=== PATIENT | female | born 1985 | race Caucasian/White ===

== ENCOUNTER 2016-10-19 13:50 | Emergency (ER) | payer MEDICAID ==
[~2016-10-19] VITALS: Wt 71.0 kg
[~2016-10-19 13:50] MED LIST: PREN-46 PO
--- NOTE | 2016-10-19 17:56 | ERD ---
ER Documentation Chief Complaint Date/Time DATE: 10/19/16 TIME: 17:48 Chief Complaint Patient is here for an ultrasound of the pelvis, HPI 30-year-old female with no significant past medical history who is a is here in the ED to receive an ultrasound of the pelvis due to no heart tones noted on previous ultrasounds. Patient reports that her CLOCK MECHANIC is Dr. Cruz Cook and was sent here for further evaluation. Denies any vaginal bleeding, vaginal discharge, dysuria, urgency, frequency, hematuria, vaginal discharge, chest pain, shortness of breath, fever, chills. Dates that her last menses was sometime earlier in July 2016. ROS All systems reviewed and are negative except as per history of present illness. Medications Home Meds Reported Medications Vit #108/Iron/Fa ( ONE TABLET) 1 Each Tablet, 1 EACH PO DAILY 11/18/14 Allergies Allergies: Coded Allergies: No Known Allergy (Unverified Allergy, Unknown, 09/26/06) Physical Exam Vitals Vital Signs Date Time Temp Pulse Resp B/P Pulse Ox O2 Delivery O2 Flow Rate FiO2 10/19/16 13:53 98.0 74 18 125/75 98 Physical Exam Const: [id number], well-nourished. In no acute distress. Head: Atraumatic, normocephalic Eyes: Normal Conjunctiva without injection. No purulent discharge. ENT: Normal external ear, nose. Moist oropharynx without tonsillar exudates. Non -erythematous pharynx. Uvula midline. No drooling. No trismus. Neck: No cervical midline tenderness. Full range of motion. No meningismus. No cervical lymphadenopathy. No JVD. Resp: Clear to auscultation bilaterally. No wheezing, rhonchi, rales, or crackles. No accessory muscle use. No retractions. Cardio: Regular rate and rhythm. No murmurs, rubs or gallops. Abd: Soft, nontender, non distended. Normal bowel sounds. No palpable masses. No rebound tenderness. No guarding. Negative McBurney's point. Negative psoas sign. Negative obturator sign. Skin: No petechiae or rashes Back: No midline tenderness. No CVA tenderness. Ext: No cyanosis, or edema. Neur: Awake and alert. Normal gait. Normal coordination. Psych: Normal Mood and Affect Procedures/MDM 30-year-old female with no significant past medical history and is a presents to the ED for a pelvic ultrasound due to no heart tones noted on her previous ultrasound. Patient is afebrile and nontoxic-appearing. Denies any vaginal bleeding or vaginal discharge. PROCEDURE: OBSTETRICAL ULTRASOUND WITH ENDOVAGINAL IMAGES CLINICAL INDICATION: no heart tones found on previous ultrasound TECHNIQUE: Multiple sonographic images of the pelvis were obtained utilizing a transabdominal and endovaginal technique. The images were reviewed on a PACS workstation. COMPARISON: None. FINDINGS: The uterus is retroverted and measures 11.8 x 6.0 cm. A debris filled gestational sac is identified with mean sac diameter of 2.03 cm which would be consistent with a gestational age of 6 weeks, 6 days and an estimated date of delivery of 06/08/2017. No yolk sac or pole is identified within it. A hypoechoic lesion with irregular borders measuring up to 4.6 cm is identified adjacent to the gestational sac consistent with a subchorionic hemorrhage. The right ovary measures 2.3 x 1.3 x 2.3 cm. The left ovary measures 2.8 x 1.9 x 2.5 cm. There is normal vascular flow in both ovaries. No significant ovarian lesions are seen. No significant pelvic free fluid is identified. IMPRESSION: A debris filled gestational sac is identified without a yolk sac or pole. A large hypoechoic lesion is identified adjacent to the gestational sac measuring up to 4.6 cm consistent with a subchorionic hemorrhage. If a recent intrauterine gestation was documented, then findings are consistent with early demise. If there is no recent documented intrauterine gestation, then findings are still likely due to early demise although an ectopic is not excluded and thus serial Beta HCG measurements are recommended for further evaluation. In either scenario, short-term follow-up ultrasound is recommended. Bilateral ovaries and adnexa are unremarkable. Patient's differentials based on the ultrasound could be possibly a demise based on the gestational sac with no yolk sac or pole. Patient was instructed to follow-up with her CLOCK MECHANIC in 2 days for further evaluation to repeat beta hCG and rule out ectopic as it cannot be ruled at this time low suspicion for symptomatic anemia, sepsis, PID, appendicitis, ovarian torsion, tubo-ovarian abscess, surgical abdomen, or other emergent conditions. Patient was educated that there is a risk for threatened . This case was discussed with my supervising physician, Dr. Coles he was stated that patient can be managed on outpatient basis with her CLOCK MECHANIC. Patient to follow up with CLOCK MECHANIC in 2 days for further evaluation and treatment. Patient is to return sooner to the ED for any worsening symptoms. Patient's questions were answered. Patient understood and agreed with discharge plan. Departure Diagnosis: Primary Impression: Encounter for ultrasound Condition: Stable Patient Instructions: Pelvic Ultrasound, Possible Miscarriage (Threatened ) Referrals: CRUZ HOUSTON MD [facility] YOU HAVE RECEIVED A MEDICAL SCREENING EXAM AND THE RESULTS INDICATE THAT YOU DO NOT HAVE A CONDITION THAT REQUIRES URGENT TREATMENT IN THE EMERGENCY DEPARTMENT. FURTHER EVALUATION AND TREATMENT OF YOUR CONDITION CAN WAIT UNTIL YOU ARE SEEN IN YOUR DOCTORS OFFICE WITHIN THE NEXT 1-2 DAYS. IT IS YOUR RESPONSIBILITY TO MAKE AN APPOINTMENT FOR FOLOW-UP CARE. IF YOU HAVE A PRIMARY DOCTOR --you should call your primary doctor and schedule an appointment IF YOU DO NOT HAVE A PRIMARY DOCTOR YOU CAN CALL OUR PHYSICIAN REFERRAL HOTLINE AT IF YOU CAN NOT AFFORD TO SEE A PHYSICIAN YOU CAN CHOSE FROM THE FOLLOWING [facility] [address] [facility]. [facility] [address] [facility]. [facility] [address] [facility]. [facility] [address] [facility]. [facility] [address] [facility]. [facility]. [address] [facility]. [facility] YOU HAVE RECEIVED A MEDICAL SCREENING EXAM AND THE RESULTS INDICATE THAT YOU DO NOT HAVE A CONDITION THAT REQUIRES URGENT TREATMENT IN THE EMERGENCY DEPARTMENT. FURTHER EVALUATION AND TREATMENT OF YOUR CONDITION CAN WAIT UNTIL YOU ARE SEEN IN YOUR DOCTORS OFFICE WITHIN THE NEXT 1-2 DAYS. IT IS YOUR RESPONSIBILITY TO MAKE AN APPOINTMENT FOR FOLOW-UP CARE. IF YOU HAVE A PRIMARY DOCTOR --you should call your primary doctor and schedule and appointment IF YOU DO NOT HAVE A PRIMARY DOCTOR YOU CAN CALL OUR PHYSICIAN REFERRAL HOTLINE AT . IF YOU CAN NOT AFFORD TO SEE A PHYSICIAN YOU CAN CHOSE FROM THE FOLLOWING [facility]: [facility] [address] [place] [address] [facility] [address] [place] [address] [facility] [address] [place] [address] [employer] [place] [address] [facility] [address] [place] [address] OFFICE FAX , [facility] [address] [place], [place] [id number] [facility] [address] [place] [address] [address] P[address], [facility] [address] [facility], [address], [facility] [address] [address] [facility] [address] [place] [address] [facility] [address] [place] [address] [address] [facility] [address] - RENETTA BARBER [address] [facility]. [address], [facility] [address] [address] [place]ITIA, MIRIAM [address] [facility]. [address], [place] [place] [address] DR SIMEON [facility] [address] [place], [place] [id number] [facility] Hours: 8:00 am - 5:00 pm Additional Instructions: FOLLOW UP WITH Dr. Cruz Houston within 2 days for further evaluation and treatment. Return to this facility if you are not improving as expected. KADI ROONEY PA-C Oct 19, 2016 17:56
[2016-10-19 18:02] VITALS: BP 118/68; PULSE 77; RESP 18; TEMP 98.5
== END 2016-10-19 18:02 | disposition home or self-care (01) ==
LOC: FTE 13:50
DX: Z36 Encounter for antenatal screening of mother (principal)
CPT/HCPCS: 76801; 76817; Z7502

== ENCOUNTER 2017-08-12 22:13 | Outpatient (CLI) | payer MEDICAID ==
[~2017-08-12] VITALS: Ht 152.4 cm; Wt 77.0 kg
[2017-08-12 22:32] VITALS: BP 116/70; PULSE 77; RESP 18
[2017-08-12] MEDS ORDERED: CALC600T24 PO (22:34)
--- NOTE | 2017-08-13 00:11 | RADRPT ---
PROCEDURE: US OB biophysical profile. CLINICAL INDICATION: decreased movements TECHNIQUE: Multiple sonographic images of the pelvis were obtained. The images were reviewed on a PACS workstation. COMPARISON: No pertinent prior examinations were submitted for comparison. FINDINGS: There is a single viable intrauterine gestation. Cardiac activity is present with 150 beats per min [place]. There is a vertex presentation. The placenta is fundal. There is a normal amount of amniotic fluid with an MARK = 14.8 cm. Biophysical profile: movement 2/2 tone 2/2. breathing 2/2 MARK 2/2 Total 03/22 IMPRESSION: Normal biophysical profile. RPTAT: HIKT . .Antione Johnson MD, Date Time Electronically viewed and signed by .Antione Johnson MD, on 08/13/2017 00:10 .T/
--- NOTE | 2017-08-13 00:36 | PN ---
Triage Information Date/Time Reason for visit: Uterine contractions Weeks of Gestation 38w 1d /Para Objective Vital Signs Date Time Temp Pulse Resp B/P Pulse Ox O2 Delivery O2 Flow Rate FiO2 08/12/17 22:32 97.6 77 18 116/70 Room Air Heart Rate Comments reactive Contractions: >10 Minutes Apart Exam /-3 Results/Medications Imaging Results BPP 8, MARK 14.8cm Disposition: Discharge RODERICK OCASIO Aug 13, 2017 00:36
--- NOTE | 2017-08-13 00:48 | TRIAGE ---
OB Triage Datetime Report Generated by CPN: 08/13/2017 00:48 Datetime: 08/13/2017 00:28 Stage of : OB Triage Monitor Mode: External Quality: Mild Pattern: Normal: <= 5 Contractions in 10 Minutes Resting Tone [place]: Relaxed Heart Rate FHR Baseline Rate: 140 Monitor Mode: External US FHR Baseline Changes: No Baseline Change Variability: Moderate 6-25 bpm Accelerations: 15X15 Decelerations: None Category: Category I Datetime: 08/12/2017 23:42 Stage of : OB Triage Monitor Mode: External Quality: Mild Pattern: Normal: <= 5 Contractions in 10 Minutes Resting Tone [place]: Relaxed Heart Rate FHR Baseline Rate: 140 Monitor Mode: External US FHR Baseline Changes: No Baseline Change Variability: Moderate 6-25 bpm Accelerations: 15X15 Datetime: 08/12/2017 23:00 Stage of : OB Triage Datetime: 08/12/2017 22:57 Stage of : OB Triage Labor Evaluation Frequency: 3-8 Monitor Mode: External Quality: Mild Pattern: Normal: <= 5 Contractions in 10 Minutes Resting Tone [place]: Relaxed Heart Rate FHR Baseline Rate: 150 Monitor Mode: External US Variability: Moderate 6-25 bpm Accelerations: 15X15 Decelerations: Late Category: Category II Pain Presence: Intermittent Pain Type: Contraction Pain Location: Abdomen Vaginal Exam Dilatation (cms): 1.0 Effacement (%): 50 Station: -3 Exam By: Dagoberto Jacobson Vaginal Bleeding: None Cervix, Consistency: Soft Cervix, Position: Posterior Presentation 'A': Cephalic Datetime: 08/12/2017 22:36 Time of Arrival: 08/12/2017 22:03 EGA: 38.1 Arrived By: Wheelchair Arrived From: Home Chief Complaint: w/ c/o ucs, spotting, DFM and dizziness earlier today. Movement: Decreased Contractions: Irregular Time Contractions Began: 08/12/2017 12:00 Contractions: q30-60 Rupture of Membranes: Denies Vaginal Bleeding: Scant Vaginal Discharge: Denies Recent Sexual Intercouse: Denies Abdominal Trauma: Not Applicable Patient Complaints: Contractions Time Provider Notified: 08/12/2017 23:00 Provider Notified: Dr Tapia Initial Plan: EFM. SVE Datetime: 08/12/2017 22:19 Stage of : OB Triage Maternal Assessment Level of Consciousness: Fully Conscious Headache: Denies Blurred Vision: No Respiratory Effort: Unlabored Nausea/Vomiting: Denies RUQ Epigastric Pain: Denies Facial Edema: None Monitor Mode: External Resting Tone Mills[place]: Relaxed Heart Rate FHR Baseline Rate: 150 Monitor Mode: External US Pain Assessment Pain Scale: 7 Pain Presence: Intermittent Pain Type: Contraction Pain Location: Abdomen
== END 2017-08-13 00:42 | disposition home or self-care (01) ==
LOC: OBT 22:13 → L-D 22:14 → OBT 08-13 00:42
PROVIDERS: ATTEND Obstetrics & Gynecology
DX: O62.9 Abnormality of forces of labor, unspecified (principal); Z3A.38 38 weeks gestation of pregnancy
CPT/HCPCS: 76818

== ENCOUNTER 2017-08-19 00:30 | Inpatient (IN) | END 2017-08-21 18:06 | disposition home or self-care (01) | DRG 775 ==